=== PATIENT | female | born 1945 | race Caucasian/White ===

== ENCOUNTER 2017-01-03 18:17 | Inpatient (IN) | payer OTHER ==
[~2017-01-03] VITALS: Ht 149.9 cm; Wt 75.8 kg
[2017-01-03 20:36] LABS: BASOPHIL % 0.8 % (0-2)
[2017-01-03 20:38] LABS: PLATELET COUNT 101 x10^3mcL (130-400); RED CELL DISTRIBUTION WIDTH 14.8 % (11.5-14.5)
[2017-01-03 20:45] LABS: CALCIUM 8.8 mg/dL (8.5-10.1); CARBON DIOXIDE 20.6 mmol/L (21-32); CHLORIDE SERUM 98 mmol/L (98-107); CREATININE SERUM 0.8 mg/dL (0.6-1.0); GLUCOSE SERUM 103 mg/dL (74-106); POTASSIUM SERUM 3.7 mmol/L (3.5-5.1); SODIUM SERUM 133 mmol/L (136-145)
[2017-01-03 20:47] LABS: UA SPECIFIC GRAVITY 1.015 (1.005-1.035); microscopic required? YES; urine erythrocyte NEGATIVE (NEGATIVE)
[2017-01-03 20:51] LABS: ALBUMIN 3.2 g/dL (3.4-5.0); ALKALINE PHOSPHATASE 109 U/L (46-116); ALT/SGPT 38 U/L (14-59); AMYLASE 60 U/L (25-115); AST/SGOT 49 U/L (15-37); BILIRUBIN TOTAL 1.89 mg/dL (0.20-1.00); LIPASE 191 IU/L (73-393); TOTAL PROTEIN, SERUM 6.2 g/dL (6.4-8.2)
[2017-01-03 23:10] LABS: CHOLESTEROL/HDL RATIO 3.4
[2017-01-03 23:20] LABS: FREE T4 1.7 ng/dL (0.76-1.46); FREE THYROXINE INDEX 3.7 ug/dL (1.4-4.5); T4(THYROXINE) 10.2 ug/dL (4.7-13.3)
[2017-01-04] VITALS (8 sets, daily range): BP systolic 103–134; BP diastolic 53–73; Ht 149.9 cm; Wt 75.8 kg
[2017-01-04 06:33] LABS: BASOPHIL % 0.4 % (0-2)
[2017-01-04 06:51] LABS: PLATELET COUNT 83 x10^3mcL (130-400); RED CELL DISTRIBUTION WIDTH 15.4 % (11.5-14.5)
[2017-01-04 06:57] LABS: CALCIUM 8.1 mg/dL (8.5-10.1); CARBON DIOXIDE 20.2 mmol/L (21-32); CHLORIDE SERUM 103 mmol/L (98-107); CREATININE SERUM 0.7 mg/dL (0.6-1.0); GLUCOSE SERUM 87 mg/dL (74-106); MAGNESIUM 1.8 mg/dL (1.8-2.4); PHOSPHOROUS 3.7 mg/dL (2.5-4.9); POTASSIUM SERUM 3.7 mmol/L (3.5-5.1); SODIUM SERUM 136 mmol/L (136-145)
[2017-01-04 15:48] LABS: APPEARANCE FLUID CLOUDY; COLOR FLUID YELLOW; LYMPHOCYTE FLUID 71 %; MONOCYTE FLUID 16 %; RBC FLUID 2303 /cumm; SOURCE FLUID ASCITES; WBC FLUID 73 /cumm
[2017-01-05 05:35] VITALS: BP 117/71
[2017-01-05 06:15] LABS: BASOPHIL % 0.4 % (0-2)
[2017-01-05 06:19] LABS: CARBON DIOXIDE 22.1 mmol/L (21-32); CHLORIDE SERUM 108 mmol/L (98-107); CREATININE SERUM 0.7 mg/dL (0.6-1.0); GLUCOSE SERUM 94 mg/dL (74-106); MAGNESIUM 1.8 mg/dL (1.8-2.4); PHOSPHOROUS 3.1 mg/dL (2.5-4.9); POTASSIUM SERUM 3.6 mmol/L (3.5-5.1); SODIUM SERUM 140 mmol/L (136-145)
[2017-01-05 06:28] LABS: PLATELET COUNT 85 x10^3mcL (130-400); RED CELL DISTRIBUTION WIDTH 15.2 % (11.5-14.5)
[2017-01-05 10:12] VITALS: BP 118/82
[2017-01-05 10:28] LABS: T3 TOTAL 0.95 ng/mL
[2017-01-05 14:04] VITALS: BP 139/80
[2017-01-05 18:00] VITALS: BP 136/78
[2017-01-05 20:24] VITALS: BP 135/70
[2017-01-06 05:33] VITALS: BP 126/65
[2017-01-06 06:22] LABS: BASOPHIL % 0.2 % (0-2)
[2017-01-06 06:25] LABS: CALCIUM 8.3 mg/dL (8.5-10.1); CARBON DIOXIDE 20.8 mmol/L (21-32); CHLORIDE SERUM 105 mmol/L (98-107); CREATININE SERUM 0.6 mg/dL (0.6-1.0); GLUCOSE SERUM 97 mg/dL (74-106); MAGNESIUM 1.8 mg/dL (1.8-2.4); PHOSPHOROUS 3.1 mg/dL (2.5-4.9); POTASSIUM SERUM 4.2 mmol/L (3.5-5.1); SODIUM SERUM 135 mmol/L (136-145)
[2017-01-06 06:26] LABS: PLATELET COUNT 85 x10^3mcL (130-400); RED CELL DISTRIBUTION WIDTH 15.3 % (11.5-14.5)
[2017-01-06 08:06] VITALS: BP 135/67
[2017-01-06] MEDS ORDERED: LASIX40 MG PO (15:15)
[2017-01-06] MEDS ORDERED: ALD50 PO (15:16)
[2017-01-06 15:33] VITALS: BP 135/67
[2017-01-06] MEDS ORDERED: ZOFRAN ODT8 MG PO (17:30)
[2017-01-06] MEDS ORDERED: BACTRIM DS1 TAB PO (17:30)
== END 2017-01-06 17:58 | disposition home or self-care (01) | DRG 432 ==
LOC: ED 18:17 → DU 22:34 → MU 01-05 08:57
PROVIDERS: Emergency Medicine; Family Medicine; ADMIT Family Medicine
PROC: 0W9G3ZZ Drainage of Peritoneal Cavity, Percutaneous Approach (ICD-10-PCS; principal; 2017-01-04)
DX: K74.60 Unspecified cirrhosis of liver (principal); G93.41 Metabolic encephalopathy; R18.8 Other ascites; N39.0 Urinary tract infection, site not specified; E87.1 Hypo-osmolality and hyponatremia; E44.0 Moderate protein-calorie malnutrition; E80.6 Other disorders of bilirubin metabolism
CPT/HCPCS: 83880; 84439; 94150; J0696; J1940; J2001; J7030; Q0092; Q9967

== ENCOUNTER 2017-05-27 18:25 | Emergency (ER) | payer OTHER ==
[~2017-05-27] VITALS: Ht 152.4 cm; Wt 66.9 kg
[~2017-05-27 18:25] MED LIST: ALD50 PO; BACTRIM DS1 TAB PO; LASIX40 MG PO; ZOFRAN ODT8 MG PO
[2017-05-27 19:39] LABS: BASOPHIL % 0.7 % (0-2); RED CELL DISTRIBUTION WIDTH 13.6 % (11.5-14.5)
[2017-05-27 19:49] LABS: PLATELET COUNT 87 x10^3mcL (130-400)
[2017-05-27 20:07] LABS: CALCIUM 8.8 mg/dL (8.5-10.1); CARBON DIOXIDE 21.2 mmol/L (21-32); CHLORIDE SERUM 102 mmol/L (98-107); CREATININE SERUM 1.4 mg/dL (0.6-1.0); GLUCOSE SERUM 109 mg/dL (74-106); POTASSIUM SERUM 4.5 mmol/L (3.5-5.1); SODIUM SERUM 132 mmol/L (136-145)
[2017-05-27 20:12] LABS: ALKALINE PHOSPHATASE 118 U/L (46-116); ALT/SGPT 23 U/L (14-59); AST/SGOT 37 U/L (15-37); BILIRUBIN TOTAL 1.83 mg/dL (0.20-1.00); TOTAL PROTEIN, SERUM 6.9 g/dL (6.4-8.2)
[2017-05-27 20:17] LABS: ALBUMIN 3.2 g/dL (3.4-5.0)
[2017-05-27 23:02] VITALS: BP 115/60
== END 2017-05-27 23:03 | disposition home or self-care (01) ==
LOC: ED 18:25
PROVIDERS: Emergency Medicine
DX: R18.8 Other ascites (principal); K74.60 Unspecified cirrhosis of liver; R35.0 Frequency of micturition; H40.9 Unspecified glaucoma; F41.9 Anxiety disorder, unspecified; K76.0 Fatty (change of) liver, not elsewhere classified; Z90.49 Acquired absence of other specified parts of digestive tract
CPT/HCPCS: 36415; 49083; 83880; J2001

== ENCOUNTER 2017-07-28 12:19 | Inpatient (IN) | payer OTHER ==
[~2017-07-28] VITALS: Ht 149.9 cm; Wt 52.6 kg
--- NOTE | 2017-07-28 12:27 | NUR ---
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 LI CALLED TO BEDSIDE FOR IMMEDIATE MSE, PT HOME MEDICATIONS DO NOT SHOW ANY NARCOTICS, PT RIGHT EYE BRISK RESPONSE TO LIGHT, LEFT EYE HAS A CATARACT WITH NO PUPIL RESPONSE
--- NOTE | 2017-07-28 12:38 | NUR ---
NO RESPONSIVE TO IV NARCAN, DR. LI NOTIFIED
--- NOTE | 2017-07-28 12:51 | NUR ---
PT OFF UNIT IN CT
[2017-07-28] MEDS ORDERED: ALLEGRA ALLERG180 M1 PO (12:52)
[2017-07-28] MEDS ORDERED: VITAMIN D400 UNIT PO (12:53)
[2017-07-28 12:58] LABS: BASOPHIL % 1.6 % (0-2); PLATELET COUNT 287 x10^3mcL (130-400); RED CELL DISTRIBUTION WIDTH 13.9 % (11.5-14.5)
--- NOTE | 2017-07-28 12:58 | NUR ---
PT RETURNED FROM CT, MOVING HER HEAD AND HAS WET SOUNDS FROM THROAT, SUCTIONED PT, PT BITING ON YAUNKER, PT NOT FOLLOWING COMMANDS OR VERBALLY RESPONDING
[2017-07-28 13:13] LABS: ALKALINE PHOSPHATASE 351 U/L (46-116); ALT/SGPT 38 U/L (14-59); AST/SGOT 79 U/L (15-37); BILIRUBIN TOTAL 2.09 mg/dL (0.20-1.00); CALCIUM 8.5 mg/dL (8.5-10.1); CARBON DIOXIDE 10.7 mmol/L (21-32); CHLORIDE SERUM 94 mmol/L (98-107); CHOLESTEROL 140 mg/dL (<200); CREATININE SERUM 3.9 mg/dL (0.6-1.0); GLUCOSE SERUM 99 mg/dL (74-106)
[2017-07-28 13:19] LABS: ALBUMIN 1.9 g/dL (3.4-5.0); TOTAL PROTEIN, SERUM 5.8 g/dL (6.4-8.2)
[2017-07-28 13:20] LABS: POTASSIUM SERUM 6.2 mmol/L (3.5-5.1); SODIUM SERUM 123 mmol/L (136-145)
--- NOTE | 2017-07-28 13:20 | NUR ---
PT FAMILY IS AT BEDSIDE, REQUESTING TO SPEAK WITH DR. LI, DR. LI NOTIFIED; PT FAMILY STATES THAT WE SHOULD HAVE USED THE BUSINESS CARD FOR PATIENTS DOCTOR TO FIND OUT ALL HER HISTORY INSTEAD OF "GOING THROUGH EVERYTHING" REGARDING TESTING, EXPLAINED TO FAMILY THAT DUE TO PT CONDITION WE NEED TO RULE OUT A MEDICAL EMERGENCY SUCH STROKE AND THIS ENTAILS A FULL WORKUP, NOTIFIED THEM THAT ON PT ED ARRIVAL PT UNRESPONSIVE
--- NOTE | 2017-07-28 13:23 | NUR ---
PT IV IN RIGHT HAND BECAME DISLODGED, LOOKING FOR NEW IV SITE AT THIS TIME
--- NOTE | 2017-07-28 13:24 | NUR ---
REPORT TO LUZ ELENA WAGNER TO ASSUME CARE
--- NOTE | 2017-07-28 13:44 | NUR ---
FAMILY AT BEDSIDE. PT RESTING WITH EYES CLOSED. NO SIGNS OF DISTRESS AT THIS TIME.
[2017-07-28 14:16] LABS: MAGNESIUM 2.9 mg/dL (1.8-2.4); PHOSPHOROUS 5.7 mg/dL (2.5-4.9)
[2017-07-28 14:19] LABS: T3 TOTAL 0.51 ng/mL
[2017-07-28 14:22] LABS: CHOLESTEROL/HDL RATIO 6.9
[2017-07-28 14:43] LABS: FREE T4 0.98 ng/dL (0.76-1.46); FREE THYROXINE INDEX 2.2 ug/dL (1.4-4.5); T4(THYROXINE) 5.7 ug/dL (4.7-13.3)
--- NOTE | 2017-07-28 14:45 | NUR ---
PT RESTING IN BED WITH OCCASIONAL EYE OPENING TO PAINFUL/TACTILE STIMULI NOTED. FAMILY AT BEDSIDE.
--- NOTE | 2017-07-28 15:30 | NUR ---
REPORT GIVEN TO ROSLYN WAGNER.
[2017-07-28 16:33] VITALS: BP 107/54
--- NOTE | 2017-07-28 16:39 | NUR ---
RECEIVED PT FROM ED REYNALDO REY. IV NOTED TO LFA PATENT AND INTACT. TELE 47 PLACED ON PT READING STA. BED IN LOWEST POSITION AND SIDE RAILS UPX2. ENDORSED PT TO PRIMARY NURSE ROSLYN
--- NOTE | 2017-07-28 17:16 | NUR ---
DR. RODRIGUEZ NOTIFIED OF LACTIC ACID 6.8
--- NOTE | 2017-07-28 17:42 | NUR ---
Pt. LABORED BREATHING RESPIRATIONS 22 MORHINE ADMINISTERED PER EMAR WILL CONTINUE TO MONITOR.
--- NOTE | 2017-07-28 18:14 | NUR ---
Pt. REMAINS LETHARGIC LABORED BREATHING STILL NOTED O2 2L/MIN NC. NG RIGHT NARE CLAMPED. BROWN CATHETER JOSE ALBERTO URINE NOTED. IVF RUNNING TO IV LEFT WRIST PATENT AND INTACT. BED LOW/LOCKED. CALL LIGHT IN REACH. Pt. SON AT BEDSIDE.
--- NOTE | 2017-07-28 18:14 | NUR ---
Pt. REMAINS LETHARGIC LABORED BREATHING STILL NOTED O2 2L/MIN NC. NG RIGHT NARE CLAMPED. BROWN CATHETER JOSE ALBERTO URINE NOTED. IVF RUNNING TO IV RIGHT WRIST PATENT AND INTACT. BED LOW/LOCKED. CALL LIGHT IN REACH. Pt. SON AT BEDSIDE.
--- NOTE | 2017-07-28 21:00 | NUR ---
MORPHINE DRIP INITIATED ORDERED BY DR BEGUM AT 4 MG/HR. RR-16, HR 113. PT MOANING, BUT NO FACIAL GRIMACE OBSERVED. NGT DC'd FROM RIGHT NARE, PT TOLERATED WELL. FAMILY AT BEDSIDE. WILL CONTINUE TO MONITOR.
[2017-07-28 21:08] VITALS: BP 91/58
--- NOTE | 2017-07-28 21:46 | NUR ---
PT MOANING ON AND OFF, MOANING BECOMES LOUDER AT TIMES. INCREASED MORPHINE DRIP TO 6 MG/HR ORDERED. RR-16, HR-77. FAMILY AT BEDSIDE. ON 2L NC. CALL LIGHT WITHIN REACH. WILL CONTINUE TO MONITOR.
--- NOTE | 2017-07-28 22:40 | NUR ---
PT CAN BE HEARD MOANING LOUDLY, RR-12, HR-117. MORPHINE DRIP INCREASED TO 8 MG/HR. FAMILY AT BEDSIDE, CALL LIGHT WITHIN REACH. WILL CONTINUE TO MONITOR.
--- NOTE | 2017-07-28 23:11 | NUR ---
PT APPEARS RESTLESS AT THIS TIME. EXPLAINED TO FAMILY BENEFITS OF ATIVAN, FAMILY AGREEABLE TO GIVE MED. ADMINISTERED ATIVAN ORDERED PER EMAR. WILL CONTINUE TO MONITOR.
--- NOTE | 2017-07-28 23:45 | NUR ---
REDNESS NOTED IV SITE AT LEFT WRIST. NEW IV INSERTED TO LFA BY RESOURCE NURSE, 22 G, PT TOLERATED WELL. IV TO LEFT WRIST DC'd, CATHETER INTACT. PT MOANING LOUDLY AT THIS TIME, MORPHINE DRIP INCREASED TO 10 MG/HR. WILL CONTINUE TO MONITOR.
--- NOTE | 2017-07-29 01:30 | NUR ---
PT'S HR-118, RR-8. MORPHINE DRIP INCREASED TO 12 MG/HR. FAMILY AT BEDSIDE. WILL CONTINUE TO MONITOR.
--- NOTE | 2017-07-29 01:45 | NUR ---
PT SOUNDS CONGESTED AT THIS TIME. FAMILY IS REQUESTING FOR RT TO DEEP SUCTION PT. PER DR LEARY, MAT FOR RT TO SUCTION. RT AT BEDSIDE. MORPHINE DRIP CONTINUES TO INFUSE AT THIS TIME. CALL LIGHT WITHIN REACH. WILL CONTINUE TO MONITOR.
[2017-07-29 02:40] VITALS: BP 82/42
--- NOTE | 2017-07-29 02:51 | NUR ---
PT'S HR-118, RR-8. NO MOANING, GROANING OR FACIAL GRIMACE IS OBSERVED. MORPHINE DRIP INCREASED TO 14 MG/HR FOR INCREASED HR. FAMILY AT BEDSIDE. WILL CONTINUE TO MONITOR.
--- NOTE | 2017-07-29 03:45 | NUR ---
PT'S HR-121, RR-6. MORPHINE DRIP INCREASED TO 16 MG/HR. FAMILY AT BEDSIDE. WILL CONTINUE TO MONITOR.
--- NOTE | 2017-07-29 04:11 | NUR ---
PT'S HR REMAINS HIGH AT 123. RR-6. MORPHINE DRIP INCREASED TO 18 MG/HR. WILL CONTINUE TO MONITOR.
[2017-07-29 06:15] VITALS: BP 74/48
--- NOTE | 2017-07-29 06:50 | NUR ---
PT RESTING WITH FAMILY AT BEDSIDE. NO MOANING, FACIAL GRIMACE, OR SIGNS OF PAIN OBSERVED AT THIS TIME. PT REMAINS ON 2L NC. MORPHINE DRIP INFUSING AT 18 MG/HR. CALL LIGHT WITHIN REACH. WILL ENDORSE CARE TO AM NURSE.
--- NOTE | 2017-07-29 08:00 | NUR ---
SPOKE WITH DR MARK MORENO ON THE PHONE AND ORDERE SCOPAMINE PATCH AND LASOX TO BE GIVEN IV. ADVISED THE DOCTOR OF CONDITION AND SHE ADVISED OF PLAN OF CARE.
--- NOTE | 2017-07-29 08:40 | NUR ---
PATIENT SUCTIONED INDICATED AND GAVE THE 20MG OF LASIX ORDERED. PATIENT WILL BE HAVING A SCOPAMINE PATCH WELL. PATIENT AHS BEEN HAVING COPUS AMOUNTS OF SECRETIONS REPORTED OVER NIGHT. SHE DOES NOT RESPOND TO TACTILE OR VERBAL STIMULI. CONTINUED ON MORPHINE DRIP ORDRED ADN AT 18 PER HOUR AT THIS TIME. FAMILY AT BEDSIDE AND SUPPORTIVE WITH CARE. MOVED TO ROOM 228B FOR APPROPRIATE PRIVACY FOR FAMILY AND PATIENT.WILL CONTINUE TO MONTIR INDICATED. VTIALS AT THIS TIME AT97.5, 84, 8, 74/48, 99% ON 02 AT 2 LITERS. LUNGS ARE VERY CONGESTED AND PATIENT IS WITH POOR VENOUS RETURN TO THE FINGERS AND TOES. PULSES WEAK AND BOWEL SOUNDS HYPOACTIVE AT THIS TIME. PATIENT HAS IV INTACT AND ON TEL 47 AND PATIENT HAS BEEN SONUS RYTHM AT THIS TIME.
--- NOTE | 2017-07-29 09:06 | NUR ---
SUCTIONED NOW THREE TIMES SINCE START OF SHIFT. PATIENT WAS GIVEN THE LASIX AND AWAITING THE PATCH TO APPLY. PATIENT HAS MINIMAL OUTPUT 0F URINE AT THIS TIME. WILL CONTINUE TO MONITOR INDICATED. CHANGED THE MORPHINE BAG AT THIST TIME AND CONTINUED ON DRIP ORDERED.
[2017-07-29 09:48] VITALS: BP 79/53
--- NOTE | 2017-07-29 10:04 | NUR ---
SUCTIONED TWO MORE TIMES AND NOTED COPUS SECTIONS. TOLERATED WELL. MONITOR CALLED ADN HEARTRATE AT 130 AND TITRATED THE MORPHIEN TO NOW 20. WILL CONTINUE TO MONITOR INDICATED FOR EFFECTIVENESS. FAMILY AT BEDSIDE AND MADE AWARE OF ALL INTERVENTIONS INDICATED. IS TEARFUL AND WANTS TO KNOW HOW MUCH LONGER. ADVISED THE FAMILY THE SLOWING OF THE RESPIRATION AND MORE AGONAL AND WITH MORE PAUSES AND THE LESS URINE OUTPUT AND THE BLUING OF THE NAIL BEDS AND MOTTLING OF THE SKIN AND PUTTY COLOR OF THE SKIN OTHER SIGNS OF INPENDING . PATIENT AT THIS TIME IS WITH LOW RESPIRATIONS OF 10 AND SHE HAS MINIMAL URINE OUTPUT IF ANY EVEN THOUGH GAVE LASIX. SHE HAS NO INDICATION OF AWARENESS TO HER SURROUNDINGS AND FINGER NAILBEDS ARE ALREADY WITH POOR RETURN. STAFF DOES NOT EXPECT HER TO CONTINUE ON BUT ADVISEDD THE FAMILY THE PATIENT WILL CHOOSE HER OWN TIME AND STAFF CAN NOT SAY WHEN.
--- NOTE | 2017-07-29 10:24 | NUR ---
ECHO DC'D PT DNR-PALITIVE CARE
--- NOTE | 2017-07-29 10:57 | NUR ---
FAMILY REQUESTS TO SUCTION BUT THE PATIENT HAS NO SECRETIONS AT THIS TIME. SHE SOUNDS GURGLEY BUT THE SUCTION CATH ENTERED VIA THE NOSE AND ALMOST NOTHING IS EXTRACTED. THE BROWN HAS NOT SHOWN ANY NEW OUTPUT FROM THE LASIX EITHER AT THIS TIME. CALLED THE PHARMACY FOR NEW BAGS OF MORPHINE INDICATED.
--- NOTE | 2017-07-29 11:22 | NUR ---
PATIENT HAS ANOTHER ELEVATION IN PULSE AND TITRATED NEW BAG NOW TO 22 PER HOUR INDICATED. PATIENT WILL CONTINUE TO MONITOR FOR PAIN AND HEARTRATE. NOTE DHER EYES ARE OPEN AND PATIENT HAS BEEN WITH FAMIY AT BEDSIDE AND THE SPOUSE WAS WETTING HER MOUTH. CONTINEU TO KEEP FAMILY AWARE OF ALL INTERVENTIONS INDICATED.
--- NOTE | 2017-07-29 12:07 | NUR ---
PATIENT WITH DOUBLE READING ON THE MONITOR AND CHANGED THE PATCHES AND THE WIRES BUT NO CHANGES. WILL NEED TO LISTEN APICALLY TO THE HEARTRATE FOR READING. FAMILY BEDSIDE. SUCTIONED THE PATIENT AGAIN AND NO URINE OUTPUT AT THIS TIME.
--- NOTE | 2017-07-29 12:32 | NUR ---
CHECKED THE PULSE APICALLY INDICATED AND AT 120 AT THIS TIME. PATIENTS FAMILY ADVISED THE NURSE WILL BE INCREASING/TITRATING THE MORPHINE ANOTHER TWO MG. WILL MONITOR FOR EFFECTIVENESS.
--- NOTE | 2017-07-29 13:46 | NUR ---
PERIODS OF APNEA NOTED AND PATIENT HAS BEEN NON RESPONSIVE TO FAMILY OR STAFF AT BEDSIDE. PATIENT HAS LESS GURGLING AND IS MORE DRY. PATIENT WITH NO URINE OUTPUT NOTED. VITALS ARE AT 55/24, 88, 10. PATIENT CONTINUED ON 02 VIA NASAL CANNULA. FAMILY ARE GRIEVING AT BEDSIDE. NEW MORPHINE DRIP BAG HUNG AND CONTINUED AT 24 AT THIS TIME.
--- NOTE | 2017-07-29 14:14 | NUR ---
DR MARK MORENO AT BEDSIDE AND DISCUSSED PLAN OF CARE. PATIENT WITH AGONAL APNEIC BREATHING NOTED. OFFERED TO TITRATE THE MORPHINE AGAIN THE PARIMETERS INDICATED SHE HAS HEARTRATE IN THE 12O'S.WILL CONTINUE TO MONITOR INDICATED. CALLED THE PHARMACY FOR NEXT BAG PREPARATION.
[2017-07-29 14:15] VITALS: BP 55/24
--- NOTE | 2017-07-29 14:53 | NUR ---
PATIETN WITH SHALLOW RESPIRATION AND SEEMS LESS EFFECTIVE BREATHING AT THIS TIME. PATIENTS PALOR IS PALE AND SHE IS WITH EYES OPEN BUT NO RESPONCES NOTED BY FAMILY AT THE BEDSIDE. ONE SON IS COMING TO SEE THE PATIENT AND HE IS COMING FROM [place] AND APPARENTLY DRIVING. PATIENT DOES NOT APPEAR IN ANY PAIN AND THE HEARTRATE AT 76 AT THIS TIME AND IRREGULAR. PATIENT HAS REFUSED ANY FURTHER PAIN MEDICATION TITRATION AT THIS TIME.
--- NOTE | 2017-07-29 15:25 | NUR ---
PATIENT WAS WITH LOW RESPIRATION AND AGONAL BREATHING IN SHORT AND STRAINED BURSTS. HER HEARTRATE WAS DROPPING QUICKLY AND WENT ASYSTOLI. 3D TECHNOLOGIST PRONOUNCED AT 1525 AND PATIENT HAD NO PULSE, NON RESPONSIVE AND WITHOUT RESPIATIONS. SHE DID NOT RESPOND TO STERNAL RUB OR VERBAL OR TACTILE STIMULI. FAMILY AT BEDSIDE AND WHERE PRESENT AND WITNESS AND ARE ACTIVELY GRIEVING AT THIS TIME STAFF LENDED THEM SUPPORT NEEDED. REMOVED THE MORPINE DRIP PRIOR TO LEAVING PATIENT WITH FAMILY PER PROTOCAL. WAS DONE DESCREETLY INDICATED.
--- NOTE | 2017-07-29 15:35 | NUR ---
DANAY LEFT WITH [facility]ONERS OFFICE, AWAITING CALL BACK
--- NOTE | 2017-07-29 15:48 | NUR ---
1540 [facility] CALLED AND SPOKE WITH SARAH AND GAVE REF # [id number], AWAITING CALL BACK FROM [facility] 1546 CALL BACK FROM [facility], SPOKE WITH MALCOLM CHAPARRO, [facility] RELEASED PATIENT, CASE # [id number]
--- NOTE | 2017-07-29 16:45 | NUR ---
SPOKE AT LENGTH WITH [facility] AND PATIENT HISTORY AND MEDICAL INFORMATION REQUESTED AND GAVE INDICATED. [facility] PATIENT IS A CANIDATE FOR DONOR AND WILL BE CALLING THE FAMILY FOR DONATION INDICATED.
--- NOTE | 2017-07-29 18:08 | NUR ---
FAMILY AT BEDSIDE AND AWARE OF THE INDICATION FOR PREPARING THE BODY FOR THE MORGUE. PATIENTS IV AND BROWN WAS REMOVED ALONG WITH 02 AND TELE. PATIENT FAMILY HAVE BEEN MAKING ARRANGEMENTS FOR THE MORGUE AND GAVE INFORMATION FOR THE SPOUSE WHO IS THE NEXT OF KIN FOR FOLLOW UP. SPOKE WITH [facility] AND THEY WILL BE CONTACTING THE FAMILY FOR PERSPECTIVE DONOR. PATIENT WAS CLEARED BY THE LETTER OF CREDIT DOCUMENT EXAMINER. AWAITING PATIENT FAMILY TO SAY LAST GOOD BYALICIA AND MELANIE THEN PREPARE AND SEND THE PATIENT TO THE [facility]. FAMILY WAS ALSO VISITED BY THE [facility].
--- NOTE | 2017-07-29 18:18 | NUR ---
FAMILY HAS LEFT AND WILL PREPARE THE BODY FOR THE M[facility] INDICATED.
== END 2017-07-29 19:23 | disposition expired | DRG 432 ==
LOC: ED 12:19 → DU 13:41
PROVIDERS: Emergency Medicine; ADMIT Family Medicine Sports Medicine
DX: K74.60 Unspecified cirrhosis of liver (principal); J96.00 Acute respiratory failure, unspecified whether with hypoxia or hypercapnia; N17.0 Acute kidney failure with tubular necrosis; E43 Unspecified severe protein-calorie malnutrition; K85.90 Acute pancreatitis without necrosis or infection, unspecified; K76.7 Hepatorenal syndrome; K72.90 Hepatic failure, unspecified without coma; E87.5 Hyperkalemia; E83.41 Hypermagnesemia; E83.39 Other disorders of phosphorus metabolism; Z66 Do not resuscitate; Z51.5 Encounter for palliative care; Z68.23 Body mass index [BMI] 23.0-23.9, adult
CPT/HCPCS: 36600; 83880; 84439; G0480; J1815; J1940; J2060; J2270; J2310; J2543; J3490; J7030; J7050; Q0092